=== PATIENT | male | born 1975 | race Caucasian/White ===

== ENCOUNTER 2019-03-15 09:35 | Emergency (ER) | payer BC, OTHER ==
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
[2019-03-15 09:52] VITALS: BP 131/75
== END 2019-03-15 10:54 | disposition home or self-care (01) ==
LOC: UCEAST 09:35
DX: M25.512 Pain in left shoulder (principal); K21.9 Gastro-esophageal reflux disease without esophagitis; F17.210 Nicotine dependence, cigarettes, uncomplicated; Z79.82 Long term (current) use of aspirin
CPT/HCPCS: 99211; G0463